=== PATIENT | female | born 1975 | race Hispanic/Latino ===

== ENCOUNTER 2024-11-06 08:39 | Emergency (ER) | payer SELFPAY ==
[2024-11-06] MEDS ORDERED: Ondansetron PF 4 MG/2 ML Vial ONE (09:22)
[2024-11-06] MEDS ORDERED: Ketorolac Tromethamine 30 MG (1 mL) VIAL ONE (09:22)
[2024-11-06 09:50] LABS: #Basophils Less than 0.03 10x3/uL (0.0-0.2); #Eosinophils 0.05 10x3/uL (0.0-0.7); #Monocytes 0.53 10x3/uL (0.11-0.59); #Neutrophils 3.54 10x3/uL (1.40-6.50); %Basophils 0.3 % (0.0-1.0); %Eosinophils 0.8 % (0.0-10.0); %Lymphocytes 29.6 % (21.0-51.0); %Monocytes 9.0 % (0.0-10.0); %Neutrophils 60.0 % (42.0-75.0); Hematocrit 36.8 % (36.0-47.0); Hemoglobin 11.4 g/dL (12.0-16.0); Mean Corpuscular Hemoglobin 27.3 pg (27.0-31.0); Mean Corpuscular Volume 88.0 fL (78.0-98.0); Platelet Count 291 10x3/uL (130-400); Red Blood Cell (RBC) Count 4.18 mill/uL (4.20-5.40); White Blood Cell (WBC) Count 5.91 10x3/uL (4.8-10.8)
[2024-11-06 09:50] LABS: Pregnancy Test - Urine (BHCG) Negative (Negative); Pregu Control Background? CLEAR/WHITE (CLR/WHITE); Pregu Control Bar Appear? YES (CONTROL BAR)
[2024-11-06 09:51] LABS: Bacteria/HPF None Seen HPF (None Seen); CAUTI Indications for Culture Pelvic or flank pain; Glucose, Urine (Dipstick) Normal (Negative); Leukocyte Negative Leu/uL (Negative); Protein, Urine (Dipstick) Negative (Neg-Trace); RBC/HPF 0-3 HPF (0-3); Specific Gravity, Urine 1.009 (1.002-1.036); WBC/HPF 0-3 HPF (0-3)
[2024-11-06 09:53] LABS: Urine Culture Reflex No No
[2024-11-06 10:01] LABS: ALT (SGPT) 34 U/L (Less than 34); AST (SGOT) 46 U/L (11-34); Albumin 4.0 g/dL (3.1-4.5); Alkaline Phosphatase 97 U/L (40-110); Anion Gap 12 mmol/L (10-20); BUN (Urea Nitrogen) 9 mg/dL (7.0-18.7); Bilirubin, Total 0.3 mg/dL (0.3-1.2); Calc. Creatinine Clearance 0 mL/min (70-130); Calcium 9.1 mg/dL (7.8-10.44); Carbon Dioxide 27 mmol/L (22-29); Chloride 104 mmol/L (98-107); Globulin 3.9 g/dL (2.4-3.5); Glucose 104 mg/dL (70-105); Lipase 16 U/L (8-78); Potassium 4.4 mmol/L (3.5-5.1); Sodium 139 mmol/L (136-145)
[2024-11-06] MEDS ORDERED: Iopamidol-370 76% 500 ML MDV (1 ML CHARGE) ONE (11:35)
== END 2024-11-06 11:22 | disposition home or self-care (01) ==
LOC: ERS 08:39
DX: R10.9 Unspecified abdominal pain (principal)
CPT/HCPCS: 74177; 80053; 81001; 81025; 83690; 85025; 96374; 96375; J1885; J2405; Q9967